=== PATIENT | female | born 1955 | race Caucasian/White ===

== ENCOUNTER → 2024-05-08 14:55 | Outpatient (REF) | payer MEDICARE, OTHER, SELFPAY | LOC: WDC 14:55 | PROVIDERS: ATTENDING PHYSICIAN Obstetrics & Gynecology Gynecology; FAMILY PHYSICIAN Nurse Practitioner Family | DX: Z12.31 Encounter for screening mammogram for malignant neoplasm of breast (principal) | CPT/HCPCS: 77063; 77067 ==

== ENCOUNTER → 2024-06-21 08:23 | Outpatient (REF) | payer MEDICARE, OTHER, SELFPAY | LOC: RAD 08:23 | PROVIDERS: ATTENDING PHYSICIAN Nurse Practitioner Family; FAMILY PHYSICIAN Nurse Practitioner Family | DX: R10.13 Epigastric pain (principal) | CPT/HCPCS: 76700 ==

== ENCOUNTER → 2024-11-05 15:02 | Outpatient (REF) | payer MEDICARE, OTHER, SELFPAY | LOC: CLAB 15:02 | PROVIDERS: ATTENDING PHYSICIAN Urology | DX: R31.9 Hematuria, unspecified (principal) | CPT/HCPCS: 88112 ==

== ENCOUNTER → 2024-11-19 08:03 | Outpatient (REF) | payer MEDICARE, OTHER, SELFPAY | LOC: RAD 08:03 | PROVIDERS: ATTENDING PHYSICIAN Urology; FAMILY PHYSICIAN Nurse Practitioner Family | DX: R31.0 Gross hematuria (principal); N39.0 Urinary tract infection, site not specified; M62.89 Other specified disorders of muscle | CPT/HCPCS: 74178; Q9967 ==

== ENCOUNTER → 2024-11-30 13:34 | Outpatient (REF) | payer MEDICARE, OTHER, SELFPAY ==
[2024-11-30 15:08] LABS: Hematocrit 38.4 % (37.0-47.0); Hemoglobin 12.9 g/dL (12.0-16.0); Mean Corp Hgb Conc. 33.6 g/dL (33.0-37.0); Mean Corpuscular Hgb 29.5 pg (27.0-31.0); Mean Corpuscular Volume 87.9 fL (81.0-99.0); Platelet Count 268 10^3/uL (130-400); Red Blood Cell Count 4.37 10^6/uL (4.20-5.40); Red Cell Dist. Width 13.2 % (11.5-14.5)
== END ==
LOC: SDSPAT 13:34
PROVIDERS: ATTENDING PHYSICIAN Specialist; FAMILY PHYSICIAN Nurse Practitioner Family
DX: Z01.818 Encounter for other preprocedural examination (principal)
CPT/HCPCS: 36415; 85027; 93005

== ENCOUNTER 2024-12-06 06:28 | Day surgery (SDC) | payer MEDICARE, OTHER, SELFPAY ==
[2024-11-30 13:46] VITALS: BMI 26.4
[2024-12-06] VITALS (7 sets, daily range): BP systolic 105–128; BP diastolic 55–80; BMI 26.4
[2024-12-06] MEDS: NORMOSOL-R/PLASMALYTE-A 1000 IV (06:37)
[2024-12-06] MEDS: Pyridium 200 MG PO (08:38)
[2024-12-06] MEDS: ROXICODONE 5 MG PO (09:20)
[2024-12-09 07:45] LABS: Stone Analysis Mass 7 mg
== END 2024-12-06 09:50 | disposition home or self-care (01) ==
LOC: SDS 06:28
PROVIDERS: ATTENDING PHYSICIAN Specialist
DX: R31.0 Gross hematuria (principal); N20.0 Calculus of kidney
CPT/HCPCS: 52356; 74018; 76000; 82365; A4300; C1894; C2617

== ENCOUNTER → 2025-05-09 15:04 | Outpatient (REF) | payer MEDICARE, OTHER, SELFPAY | LOC: WDC 15:04 | PROVIDERS: ATTENDING PHYSICIAN Obstetrics & Gynecology Gynecology; FAMILY PHYSICIAN Nurse Practitioner Family | DX: Z12.31 Encounter for screening mammogram for malignant neoplasm of breast (principal) | CPT/HCPCS: 77063; 77067 ==